=== PATIENT | female | born 1965 ===

== ENCOUNTER 2024-07-04 10:03 | Outpatient (AMB) | payer OTHER, SELFPAY ==
--- NOTE | 2024-07-04 10:11 | A.OFFVIS_ITS ---
Vital Signs 3 07/04/24 10:14 Height 5 ft 6 in Weight 292 lb BMI 47.1 BP 140/82 H Blood Pressure Location Lt radial Position Sitting Respiration 18 Pulse 112 H Pulse Source Pulse Oximeter Pulse Oximetry (%) 96 Oxygen Delivery Method Room Air Intake Visit Reasons: Chronic lower back pain Bullard Operator Required: No Allergies latex Adverse Reaction (Severe, Verified 07/04/24 10:16) Rash Medication List - Last Reconciled 07/04/24 by Ava Camargo LPN acetaminophen ER (Tylenol 8 Hour) 650 mg PO Q8H albuterol sulfate 90 mcg/actuation inhalation aspirin (Adult Aspirin Regimen) 81 mg PO DAILY bupropion HCl XL 150 mg PO DAILY duloxetine 30 mg PO DAILY duloxetine 60 mg PO DAILY levocetirizine 5 mg PO DAILY levothyroxine (Synthroid) 125 mcg PO DAILY losartan 25 mg PO DAILY oxybutynin chloride ER 5 mg PO DAILY pantoprazole 40 mg PO DAILY simvastatin 40 mg PO BEDTIME tramadol 50 mg PO DAILY PRN ubidecarenone-omega 3-vit E 25-150-200 mg-mg-unit (Co W-82-Szgkict E-Fish Oil) 1 cap PO DAILY HPI Comments Details: The patient is a 58-year-old female presenting with chronic lower back pain and associated leg pain, ongoing for several years. She reports that although her back pain is tolerable unless standing for prolonged durations, her primary concern is the persistent bilateral thigh pain, exacerbated by mobility and position changes. She has been diagnosed with arthritis, and imaging suggests the need for bilateral hip and knee replacements, which is complicated by her weight. Despite losing weight from 336 to 292 pounds, further weight reduction to 255 pounds is recommended before surgery. The patient reports additional health concerns, notably obesity and a thyroid disorder affecting her weight loss efforts. Sciatica is a recurrent complaint with occasional shooting pain in the buttocks. Moreover, she experiences urinary incontinence with both urgency and infrequent lack of awareness of sensation, requiring protective garments. Physical therapy attempts were disrupted due to intolerable pain levels and have been discontinued. She did complete 6 weeks of PT, continues with HEP as tolerated. The patient utilizes certain medications sporadically due to chronic kidney disease and potential adverse interactions. She mentions inconsistencies in the prescription of gabapentin, meloxicam, and cyclobenzaprine, due to primary care hesitations on long-term regimens. - Onset: Pain has been present for years, with leg pain extending beyond a decade. - Quality: Persistent, aching, and shooting pain. - Primary Location: Legs, particularly bilateral thighs. - Aggravating Factors: Standing, walking, attempting lateral movements, and lying flat. - Alleviating Factors: None explicitly stated, but a potential minor relief in recliner-induced positions. - Interference: Significant impact on mobility; requires the use of a walker and difficulty maintaining posture. - Affect: Pain significantly impacts mobility, ability to perform activities of daily living, work, daily activity participation and mood. - Analgesia: Currently using tramadol. Meloxicam is taken occasionally due to kidney disease. - Activities of Daily Living: Dependency on mobility aids affecting functionality. Challenge with consistent posture at work. - Aberrant Drug Related Behaviors: None reported, but cautious about reliance on medications due to family addiction history. Denies implantable devices, pacemaker or defibrillator Denies current use of anticoagulants [facility] Medical History (Updated 07/04/24 @ 12:14 by Brittany Trejo APRN, [employer]) Osteoarthritis Obesity GERD (gastroesophageal reflux disease) Chronic kidney disease COPD (chronic obstructive pulmonary disease) Sleep apnea Hypothyroid Hypertension High cholesterol Surgical History (Updated 07/04/24 @ 11:36 by Brittany Trejo APRN, [employer]) History of carpal tunnel surgery H/O: hysterectomy Hx of tonsillectomy Review of Systems Const Details: - Musculoskeletal: Reports chronic pain in lower back and legs; denies specific back tenderness under normal circumstances. - Genitourinary: Reports urinary incontinence with urgency and occasional accidents. - Neural: Reports history of sciatica and intermittent shooting pain; reports suspected spinal stenosis. - Endocrine: Reports thyroid issues. - General: Reports substantial weight loss efforts; history of obesity. Physical Exam Vital Signs: Last Vital Signs Pulse 112 H 07/04/24 10:14 Resp 18 07/04/24 10:14 BP 140/82 H 07/04/24 10:14 Pulse Ox 96 07/04/24 10:14 Oxygen Delivery Method Room Air 07/04/24 10:14 BMI result Body Mass Index 47.1 General: awake, alert, oriented. Answers questions appropriately. Fully engaged in examination. Skin: warm, dry, intact HEENT: Normocephalic. Hearing intact. Cardiac: External chest normal in appearance. Respiratory: No cough, audible wheezing or stridor. Abdomen: without gross distension. MS: No obvious swelling or deformities. Able to transition from sit to stand unassisted. Nontender over midline lumbar vertebrae and lower paraspinal muscles Bilateral lower extremity strength 3/5 Nontender over bilateral PSIS SLR negative bilaterally Minimal pain with internal/external rotation of left hip. No pain with internal/external rotation of the right hip Ambulates with the use of a Rollator walker. Antalgic gait with slight forward flexion. Favors left leg, lack of heel strike with ambulation on left. Neurological: Oriented to person, place, time and situation. Thought process intact. Psychiatric: Appropriate mood and affect. Good judgment and insight. Results Reviewed Results Reviewed: Assessment & Plan Assessment & Plan (1) Lumbar spondylosis: Code(s): M47.816 - Spondylosis without myelopathy or radiculopathy, lumbar region Category: Medical (2) Continuous use of opioids: Code(s): F11.90 - Opioid use, unspecified, uncomplicated Category: Medical (3) Chronic back pain: Code(s): M54.9 - Dorsalgia, unspecified; G89.29 - Other chronic pain Category: Medical (4) Urinary incontinence: Code(s): R32 - Unspecified urinary incontinence Category: Medical Plan The plan involves confirming the status of lumbar imaging to establish potential spinal stenosis and addressing nerve-centric symptoms with gabapentin, balancing chronic kidney disease considerations. Efforts towards ongoing weight reduction and activity modification remain crucial. Pending the diagnostics, steroid injections will be considered. Ensure longitudinal monitoring of urinary incontinence alongside further neurological evaluation. Reevaluation post- diagnostics should guide short-term neurological symptom management to alleviate symptoms and functional limitations. I discussed the diagnostic ambiguity regarding spinal stenosis due to insufficient imaging details and emphasized the importance of reviewing prior studies. The patient was advised on the potential endorsement of gabapentin therapy, considering pain characteristics and historical efficacy. I outlined the significance of imaging in guiding therapeutic steroid injections. A detailed analysis of insurance and medication refrains prompt careful prescription coordination among providers for uninterrupted high-level care. Furthermore, maintaining weight loss objective in tune with surgical considerations was reiterated, with anticipatory guidance on functional activity considerations. Follow-ups were encouraged for imaging result discussions and future pain management strategizing. Continue with Cylobenzaprine, Tramadol as prescribed by PCP. Patient advised to avoid NSAIDs including Meloxicam d/t Stage III CKD. Recomment Gabapentin 100mg po daily QHS with plan to increase to 100mg po BID if tolerating well with reported therapeutic effect. Patient will call the office or discuss with pcp when refill is needed. She declines Gabapentin prescription today stating she has plenty at home already . Patient was informed and verbally consented to the use of an ambient scribe for clinic note documentation during this visit. Orders: Orders 2 MR lumbar spine wo con Today G89.29 - Other chronic pain, M47.816 - Spondylosis without myelopathy or radiculopathy, lumbar region, M54.9 - Dorsalgia, unspecified, R32 - Unspecified urinary incontinence Patient Instructions: - Take gabapentin consistently, as discussed; aim for 100 mg every night. - Plan for MRI LS if not previously performed. Expect call from [facility]Jan to schedule. - Continue weight loss effort to aid in future surgical eligibility. - Use mobility aids as required for safety. - Follow precautions with medications; consult before altering dosing. - Contact the clinic if pain dramatically increases or new symptoms emerge. Coding Level of Care Code New Pt Level 4 (05026) Complex EM visit Add On G2211 Diagnoses Lumbar spondylosis M47.816 Continuous use of opioids F11.90 Chronic back pain M54.9; G89.29 Urinary incontinence R32
[2024-07-04 10:14] VITALS: BP 140/82; PULSE 112; RESP 18; O2SAT 96; BMI 47.1
== END 2024-07-04 10:47 | disposition home or self-care (01) ==
PROVIDERS: PCP Nurse Practitioner Family; Visit Provider Registered Nurse Emergency
DX: G89.29 Other chronic pain (principal); M47.816 Spondylosis without myelopathy or radiculopathy, lumbar region; M54.9 Dorsalgia, unspecified; Z79.891 Long term (current) use of opiate analgesic; R32 Unspecified urinary incontinence
CPT/HCPCS: 99204

== ENCOUNTER → 2024-07-04 10:03 | Outpatient (BNVA) | payer OTHER, SELFPAY | PROVIDERS: PCP Nurse Practitioner Family; Visit Provider Registered Nurse Emergency ==